=== PATIENT | female | born 1985 | race Caucasian/White ===

== ENCOUNTER 2016-05-10 12:38 | Emergency (ER) | payer MEDICAID ==
[2016-05-10] MEDS ORDERED: ONDANSETRON 4 MG VIAL ONE (14:17)
[2016-05-10] MEDS ORDERED: MORPHINE 4 MG/ML SYR ONE (14:18)
[2016-05-10] MEDS ORDERED: FAMOTIDINE 20 MG INJ ONE (14:18)
== END 2016-05-10 15:55 | disposition home or self-care (01) ==
LOC: ER 12:38
DX: R10.11 Right upper quadrant pain (principal); K80.50 Calculus of bile duct without cholangitis or cholecystitis without obstruction
CPT/HCPCS: 36415; 76705; 80053; 81003; 83690; 84703; 85025; 86677; 96374; 96375